=== PATIENT | male | born 1950 | race Caucasian/White ===

== ENCOUNTER 2016-05-23 12:05 | Observation (INO) ==
[2016-05-23 13:17] LABS: Basophils # 0.1 10*3/uL (0.0-0.2); Basophils % 0.8 % (0.0-0.8); Eosinophils # 0.2 10*3/uL (0.0-0.87); Eosinophils % 2.4 % (0.00-10.9); Hematocrit 40.3 VOL% (42.0-52.0); Immature Granulocytes % 0.3 %; Immature Granulocytes Absolute 0.02 #; Lymphocytes # 1.4 10*3/uL (1.4-4.0); Lymphocytes % 21.8 % (21.2-54.2); Mean Corpuscular HGB Conc 34.7 GM/DL (32-36); Mean Corpuscular Hemoglobin 31 PG (27-34); Mean Corpuscular Volume 88.6 FL (87-102); Mean Platelet Volume 9.4 FL (9.6-12.0); Monocytes # 0.4 10*3/uL (0.11-0.8); Monocytes % 6.6 % (1.7-12.7); Neutrophils # 4.5 10*3/uL (1.4-7.4); Neutrophils % 68.1 % (38.7-73.9); Platelet Count 150 T/CUMM (130-400); Red Blood Count 4.55 MC/CUMM (3.8-5.5); Red Cell Distribution Width 12.7 % (9.3-17.3); White Blood Count 6.6 T/CUMM (4-12)
--- NOTE | 2016-05-23 13:38 | XRay Report ---
XR chest 2V Indication: Chest pain, shortness of breath Comparison: 18 June 2014 Findings: The heart and mediastinum are normal in size and configuration. The pulmonary vascularity is normal in caliber. No lung infiltrates, effusions, pneumothorax or other abnormality is demonstrated. Impression: Normal chest x-ray PROCEDURE INTERPRETED AT [facility] DEPARTMENT OF RADIOLOGY Final Report Signed by: Dr. Kieran Cleary
[2016-05-23 13:49] LABS: Alanine Aminotransferase 27 U/L (16-61); Albumin 3.3 G/DL (3.4-5.0); Alkaline Phosphatase 75 U/L (45-117); Aspartate Amino Transferase 18 U/L (0-37); Blood Urea Nitrogen 13 MG/DL (7-18); Calcium 8.5 MG/DL (8.5-10.1); Glucose 108 MG/DL (74-106); Osmolality,Calculated 286.8 MOS/KG (273-304); Potassium 4.3 MMOL/L (3.5-5.1); Sodium 144 MMOL/L (136-145); Total Protein 6.4 G/DL (6.4-8.3); Troponin I Only < 0.015 NG/ML (0.00-0.045)
--- NOTE | 2016-05-23 14:51 | Emergency Department Note ---
Bev Shrestha Brittany, am scribing for, and in the presence of, Louie Rhodes MD 14:09. Meagan Shrestha Phillip K, MD, personally performed the services described in this documentation, ascribed by Ela Pablo in my presence, and it is both accurate and complete 451 . Arrival - Arrival Chief Complaint: Chest Pain Stated Complaint: chest pain ED Nursing Triage Note: CP, SOB, and dizzy starting 3 days ago. Pt also C/O feet swelling. Mode of Arrival: Ambulatory Limitations: No Limitations Source: Patient Time Seen by Provider: 05/23/16 13:18 - History of Present Illness HPI Narrative: This is a 66 y/o white male,who presents to the ED with c/o CP which started 3 days ago. He states he is SOB with the chest pain. He states the chest pain is a sharp tightness type of pain. He denies any nausea, fever or cough. He denies any radiation of the pain. He states at times he feels "clammy". He states at times he feels like he is smothering when he lays down. He reports the chest pain can start while either at rest or at exertion. 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 He states he has a family medical Hx of heart disease. Pt also complains of bilateral leg edema. He states the swelling started 3 days ago as well. He reports he has not been eating a heavy salt diet or on his feet more than normal. He reports taking an Aspirin daily. He states his mom gave him a Lasix earlier for the swelling in his legs. Pt has no other complaints/pain in the ED at this time. Pt has a PMHx of Mi, cardiovascular problems, and degenerative disk disease. Pt has had a cardiac cath with stent, eye surgery, and neurolgical surgery. Pt has a family medical Hx of heart disease. Pt denies a social Hx. Pt reports the last heart cath was 1 year ago. He states the stent was placed 7-8 years ago. Onset (ago): day(s) (Started 3 days ago) Consistency: constant Severity: moderate Allergies/Adverse Reactions: Allergies Allergy/AdvReac Type Severity Reaction Status Date / Time morphine Allergy Mild Unknown/Unable Verified 05/23/16 12:11 to obtain Home Medications: Home Medications Medication Instructions Recorded Confirmed Type Aspirin [Ecotrin] 81 mg PO DAILY 04/06/15 03/20/16 History Atorvastatin [Lipitor] 40 mg PO BEDTIME 04/06/15 03/20/16 History Carvedilol [Coreg] 3.125 mg PO BID 04/06/15 03/20/16 History Review of System - Review of System 12 point system: reviewed and no additional remarkable complaints except as stated - Review of System Constitutional: Absent: fever Respiratory: Absent: cough Cardiovascular: Present: chest pain, orthopnea, other (Dyspnea) Gastrointestinal: Absent: nausea Additional ROS comments: Bilateral Pedal Edema Medical,Surgical,& Family Hx - Medical History Cardio: History of: MA, Cardiovascular Problems Psychological: No history of: Psychiatric Problems Neurology: No history of: Seizures, Neurological Problems Rheumatology: No history of;: Rheumatological Problems Respiratory: No history of: Respiratory Problems Genitourinary: No history of: Problems Gastrointestinal: No history of: GI Problems Musculoskeletal: History of: Degenerative Disk Disease - Surgical History Cardiac Surgeries: Patient Denies: Cardiac Surgery Neurologic Surgeries: Surgical HX of: Neurologic Surgery (cervical disc repair) HEENT Surgeries: Surgical HX of: Eye Surgery (01/2016 Cataract Lt; 03/20/16 Sched for Rt) - Social History Smoking Status: Never smoker Frequency of Alcohol Use: None Type of Drug Use: None Exam Vital Signs: Vital Signs Temperature 98.3 F 05/23/16 12:11 Pulse Rate 58 L 05/23/16 15:30 Respiratory Rate 18 05/23/16 15:30 Blood Pressure 132/72 05/23/16 15:30 O2 Sat by Pulse Oximetry 99 05/23/16 15:30 - General General appearance: alert, in no apparent distress - Head Head exam: Present: atraumatic, normocephalic, normal inspection - Eye Eye exam: Present: normal appearance, PERRL, EOMI. Absent: nystagmus - ENT ENT exam: Present: normal exam, normal oropharynx, mucous membranes moist - Neck Neck exam: Present: normal inspection, full ROM, trachea midline. Absent: tenderness, meningismus, lymphadenopathy, thyromegaly - Chest Chest inspection: Present: normal inspection, symmetric chest wall rise. Absent : tenderness, rash, abscess - Respiratory Respiratory exam: Present: normal lung sounds bilaterally, respiratory distress. Absent: rales, rhonchi, stridor, wheezes - Cardiovascular Cardiovascular exam: Present: regular rate, normal rhythm, normal heart sounds. Absent: murmur, rubs, gallop, clicks, JVD - Abdominal Exam Abdominal exam: Present: soft, normal bowel sounds. Absent: distention, tenderness, guarding, rebound, rigidity - Extremities Exam Extremities exam: Present: pedal edema (Pitting Edema +1 bilaterally) - Back Exam Back exam: Present: normal inspection, full ROM. Absent: tenderness, muscle spasm, rashes - Neurological Exam Neurological exam: Present: alert, oriented X3, CN II-XII intact. Absent: motor sensory deficit - Psychiatric Psychiatric exam: Present: normal affect, normal mood. Absent: depressed, agitated, anxious, manic - Skin Skin exam: Present: warm, dry, intact, normal color. Absent: rash, cyanosis, diaphoresis, erythema, pallor, mottled Results - Labs CBC & BMP: 05/23/16 13:08 05/23/16 13:08 Lab Results: I have reviewed the patients labs Labs: Laboratory Tests 05/23/16 05/23/16 13:08 13:08 Hct 40.3 L MPV 9.4 L Chloride 111 H Glucose 108 H Troponin I < 0.015 Albumin 3.3 L Albumin/Globulin Ratio 1.0 L Laboratory Tests 05/23/16 05/23/16 13:08 13:08 Hct 40.3 L MPV 9.4 L Chloride 111 H Glucose 108 H Troponin I < 0.015 Albumin 3.3 L Albumin/Globulin Ratio 1.0 L - EKG EKG results: interpreted by EMILY, sinus rhythm (old septal MA) - Diagnostic Findings Procedure: Chest x-ray: report reviewed by me (Normal Chest X-ray), Ultrasound: report reviewed by me (Venous Doppler Study: No DVT) Disposition Clinical Impression: Chest pain, Unstable angina pectoris Case discussed with: patient, patient's family Disposition: Still a Patient Condition: Guarded
[2016-05-23] MEDS ORDERED: ENOXAPARIN 100 MG/ML SYRINGE SUBCUT STA (14:54)
[2016-05-23] MEDS ORDERED: ASPIRIN 325 MG TABLET PO STA (14:54)
[2016-05-23] MEDS ORDERED: ENOXAPARIN 100 MG/ML SYRINGE SUBCUT ONE (14:56)
[2016-05-23] MEDS ORDERED: ASPIRIN 325 MG TABLET ONE (14:57)
--- NOTE | 2016-05-23 15:41 | Ultrasound Report ---
Exam: US venous doppler LE BI Indication: Edema Date: 05/23/2016 2:33 PM Comparison 08/27/2013 Findings: Grayscale color flow duplex/Doppler imaging and spectral analysis waveform imaging was performed with real-time ultrasound with image stored and captured. The right common femoral, superficial femoral, popliteal saphenous veins are patent with normal augmentation and compression. There is no evidence of popliteal or Kline's cyst. Normal wave form analysis present. Normal color flow The left common femoral, superficial femoral, popliteal saphenous veins are patent with normal augmentation and compression. There is no evidence of popliteal or Kline's cyst. Normal wave form analysis present. Normal color flow Impression: 1. No DVT PROCEDURE INTERPRETED AT [facility] DEPARTMENT OF RADIOLOGY Final Report Signed by: Dr. Arias Sosa
[2016-05-23] MEDS ORDERED: MAGNESIUM SULF RIDER 4 GM in PREMIX 1 EACH IV PRN (15:57)
[2016-05-23] MEDS ORDERED: ACETAMINOPHEN 325 MG TABLET PO PRN (15:57)
[2016-05-23] MEDS ORDERED: ZALEPLON 5 MG CAPSULE PO PRN (15:57)
[2016-05-23] MEDS ORDERED: DOCUSATE SODIUM 100 MG CAPSULE PO PRN (15:57)
[2016-05-23] MEDS ORDERED: ONDANSETRON 4 MG/2 ML VIAL IV PRN (15:57)
[2016-05-23] MEDS ORDERED: MAGNESIUM SULF RIDER 2 GM in PREMIX 1 EACH IV PRN (15:57)
[2016-05-23] MEDS ORDERED: BISACODYL 5 MG TABLET PO PRN (15:57)
[2016-05-23 16:19] LABS: Troponin I Only < 0.015 NG/ML (0.00-0.045)
--- NOTE | 2016-05-23 16:21 | Cardiology History & Physical ---
Assessment and Plan - Time spent with patient Time spent with patient: Greater than 30 minutes (1) Coronary artery disease Status: Chronic Assessment and plan: SEE PLAN OF CARE LISTED BELOW Current Visit: Yes (2) Ischemic cardiomyopathy Status: Chronic Assessment and plan: SEE PLAN OF CARE LISTED BELOW Current Visit: Yes (3) Hypertension Status: Chronic Assessment and plan: SEE PLAN OF CARE LISTED BELOW Current Visit: Yes (4) Hyperlipidemia Status: Chronic Assessment and plan: SEE PLAN OF CARE LISTED BELOW Current Visit: Yes (5) Obesity Status: Chronic Assessment and plan: SEE PLAN OF CARE LISTED BELOW Current Visit: Yes (6) Obstructive sleep apnea Status: Chronic Assessment and plan: SEE PLAN OF CARE LISTED BELOW Current Visit: Yes (7) Chest pain Status: Acute Assessment and plan: SEE PLAN OF CARE LISTED BELOW Current Visit: Yes (8) Presence of stent in LAD coronary artery Status: Chronic Assessment and plan: SEE PLAN OF CARE LISTED BELOW Current Visit: Yes History of Present Illness Chief complaint: chest pain, known coronary artery disease History of present illness: Mr. Forrester is a 66 year old male previously followed by Dr. Navarro. He was last seen in cardiology clinic 06/19/2015. Risk factors include: Known coronary artery disease requiring PCI and stenting LAD 2009, hypertension, dyslipidemia, obesity and sedentary lifestyle. Approximately 3 days ago, Mr. Forrester began to experience chest pain he describes as "sharp and squeezing" located in the left breast area. This does not radiate but does cause mildly worsened shortness of breath. It lasts various amounts of times including a few seconds to a few minutes. Exercise creates the discomfort and rest relieves the discomfort. He rates the discomfort as a 7 on a scale of 1-10. He is currently chest pain-free. Cardiac biomarkers are negative. EKG does not reveal evidence of ischemia. Last cardiac catheterization 06/20/2014 revealing the following: EF 35-40% with anterolateral and apical wall severely hypokinetic. Second obtuse marginal coronary artery branch of the circumflex revealed less than 50% stenosis. LAD stent patent. Of note, patient experienced severe edema of bilateral lower extremities this past week with reported edema to his knees. He is not edematous at this time. Venous ultrasound bilateral lower extremity reveals no evidence of DVT. Dr. Paulino and I have discussed the case and he is seeing Mr. Forrester at this time. We will keep him nothing by mouth after midnight and consider possible stress testing in the morning. We will continue to cycle his cardiac biomarkers. Echocardiogram has been reordered for this evening to reevaluate his cardiac status. ASSESSMENT/PLAN: 1. CHEST PAIN - currently chest pain free. Patient has some typical and atypical features of angina. We'll continue to cycle his cardiac biomarkers and keep him nothing by mouth after midnight tonight for possible stress testing versus cardiac catheterization in the morning. 2. KNOWN CAD - PCI with stenting of LAD 2010. 3. HYPERTENSION - he tells me this is usually well controlled. We will evaluate medications and adjust accordingly during the hospital stay 4. HYPERLIPIDEMIA - fasting lipid profile in the morning. Continue lipid- lowering agent 5. SLEEP APNEA, NON-COMPLIANT - ill fitting mask. Noncompliant but is agreeable to be reevaluated with recommendations from Dr. Merino. 6. OBESITY - the merits of weight loss was thoroughly discussed for greater than 5 minutes. 7. ICM - prior echocardiogram revealed EF of 35-40%. It's been 2 years since an echocardiogram has been performed. We will reorder tonight. 8. PRESENCE OF LAD STENT - continue current plan of MCC Medications Medication Instructions Recorded Confirmed Type Aspirin [Ecotrin] 81 mg PO DAILY 04/06/15 03/20/16 History Atorvastatin [Lipitor] 40 mg PO BEDTIME 04/06/15 03/20/16 History Carvedilol [Coreg] 3.125 mg PO BID 04/06/15 03/20/16 History Allergies Allergy/AdvReac Type Severity Reaction Status Date / Time morphine Allergy Mild Unknown/Unable Verified 05/23/16 12:11 to obtain Review of systems: REVIEW OF SYSTEMS: - Constitutional Constitutional: Denies syncope, anorexia, fatigue, night sweats - EENT Eyes: Absent: blurry vision, loss of vision, diplopia Ears: Absent: decreased hearing, ear pain, ear discharge - Cardiovascular Cardiovascular: Present: chest pain with exertion, dyspnea on exertion, edema. Denies palpitations. Absent: chest pain with deep breath, claudication - Respiratory Respiratory: Present: SHORT, cough. Absent: wheezing, hemoptysis, change in phlegm color - Gastrointestinal Gastrointestinal: Absent: Denies abdominal pain or constipation, hematemesis, hematochezia, melena, change in bowel habits, nausea - Genitourinary Genitourinary: Absent: difficulty urinating, dysuria, urinary hesitancy, flank pain - Musculoskeletal Musculoskeletal: Present: back pain, pain Absent: joint swelling, muscle cramps, muscle weakness - Neurological Neurological: Present: normal gait without frequent falls. Absent: dizziness, hemiparesis - Psychiatric Psychiatric: Absent: anxiety, depression, difficulty concentrating - Endocrine Endocrine: Absent: cold intolerance, heat intolerance, polyuria, polyphagia, polydipsia - Hematologic/Lymphatic Hematologic/Lymphatic: Present: easy bruising. Absent: easy bleeding -Integumentary Integumentary: Absent: lesions, rashes, skin breakdown Medical,Surgical,& Family Hx - Medical History Cardio: History of: CAD, Hypertension, [place], Cardiovascular Problems Psychological: No history of: Psychiatric Problems Neurology: No history of: Seizures, Neurological Problems Rheumatology: No history of;: Rheumatological Problems Respiratory: No history of: Respiratory Problems Genitourinary: No history of: Problems Gastrointestinal: No history of: GI Problems Musculoskeletal: History of: Degenerative Disk Disease - Surgical History Cardiac Surgeries: Patient Denies: Cardiac Surgery Neurologic Surgeries: Surgical HX of: Neurologic Surgery (cervical disc repair) HEENT Surgeries: Surgical HX of: Eye Surgery (01/2016 Cataract Lt; 03/20/16 Sched for Rt) - Social History Smoking Status: Never smoker Have you smoked in the last 12 months: No Frequency of Alcohol Use: None Type of Drug Use: None Marital Status: Lives With:: Spouse Functional capacity: independent ambulation Cardiology Physical Exam - Constitutional Vitals: Vital Signs Temp Pulse Resp BP Pulse Ox 98.3 F 58 L 18 132/72 99 05/23/16 12:11 05/23/16 15:30 05/23/16 15:30 05/23/16 15:30 05/23/16 15:30 Exam: General: Appears well with no apparent distress. Pleasant and cooperative. Appears comfortable. HEENT: PERRL, normocephalic, atraumatic. Mucous membranes moist. No jaundice noted. Conjunctiva moist and clear, sclerae anicteric Neck: No JVD/HJR, no thyromegaly or lymphadenopathy noted. No carotid bruit appreciated Cardiac: Regular rate and rhythm. No murmur rub or gallop. Lungs: Clear to auscultation without accessory muscle use to assist the respiratory pattern. Not requiring oxygen Abdomen: Soft, bowel sounds normoactive. Nontender and nondistended. No abdominal bruit or thrill noted. No masses noted. Musculoskeletal: No fluid collection. Decreased range of motion is noted. Extremities: No clubbing, cyanosis noted. No edema noted. Upper extremity pulses 2+. Lower extremity pulses 2+. Capillary refill less than 3 seconds. Skin: No unusual lesions or rashes. No skin breakdown appreciated. Neuro: Awake, alert and oriented 3. Moves all extremities well without hemiparesis or paralysis. No essential tremor is appreciated. Result/EKG - Labs CBC & BMP: 05/23/16 13:08 05/23/16 13:08 Lab Results: I have reviewed the past 24 hour labs - Diagnostic Findings Procedure: Chest x-ray: report reviewed by me, Ultrasound: report reviewed by me - EKG EKG results: interpreted by me EKG shows: sinus rhythm Quality Measures - VTE Contraindication to Pharmacological VTE Prophylaxis: Already on Theraputic Agent , No Prophylaxis Needed
[2016-05-23] MEDS: NITROGLYCERIN 2% OINT 1 INCH/GM PACK TOP SCH (18:04)
[2016-05-23] MEDS: PANTOPRAZOLE 40 MG TABLET PO SCH (18:04)
[2016-05-23] MEDS ORDERED: ATORVASTATIN 20 MG TABLET PO SCH (21:00)
[2016-05-23] MEDS ORDERED: ATORVASTATIN 40 MG TABLET PO SCH (21:00)
[2016-05-23] MEDS ORDERED: CARVEDILOL 3.125 MG TABLET PO SCH (21:00)
[2016-05-23] MEDS: CARVEDILOL 3.125 MG TABLET PO SCH (22:31)
[2016-05-24] MEDS: NITROGLYCERIN 2% OINT 1 INCH/GM PACK TOP SCH ×2 (01:39→06:18)
[2016-05-24 03:43] LABS: Basophils # 0.1 10*3/uL (0.0-0.2); Basophils % 1.1 % (0.0-0.8); Eosinophils # 0.2 10*3/uL (0.0-0.87); Hematocrit 40.2 VOL% (42.0-52.0); Hemoglobin 13.6 GM/DL (14.0-18.0); Immature Granulocytes % 0.2 %; Immature Granulocytes Absolute 0.01 #; Lymphocytes # 1.8 10*3/uL (1.4-4.0); Lymphocytes % 31.4 % (21.2-54.2); Mean Corpuscular HGB Conc 33.8 GM/DL (32-36); Mean Corpuscular Hemoglobin 31 PG (27-34); Mean Corpuscular Volume 90.1 FL (87-102); Mean Platelet Volume 10.4 FL (9.6-12.0); Monocytes # 0.4 10*3/uL (0.11-0.8); Monocytes % 7.6 % (1.7-12.7); Neutrophils # 3.2 10*3/uL (1.4-7.4); Neutrophils % 56.7 % (38.7-73.9); Platelet Count 122 T/CUMM (130-400); Red Blood Count 4.46 MC/CUMM (3.8-5.5); Red Cell Distribution Width 12.5 % (9.3-17.3); White Blood Count 5.7 T/CUMM (4-12)
[2016-05-24 04:17] LABS: Albumin 3.2 G/DL (3.4-5.0); Bilirubin,Total 0.5 MG/DL (0.2-1.0); Calcium 8.3 MG/DL (8.5-10.1); Osmolality,Calculated 285.8 MOS/KG (273-304); Potassium 4.1 MMOL/L (3.5-5.1); Risk Ratio 3.63; Total Protein 5.9 G/DL (6.4-8.3); VLDL CHOLESTEROL 41.2 MG/DL
[2016-05-24 04:26] LABS: Troponin I Only < 0.015 NG/ML (0.00-0.045)
--- NOTE | 2016-05-24 07:41 | EKG Report ---
Stationary ECG Study [facility] ER Test Date: 05/23/2016 12:12 PM Pat Name: BESS SHARMA Department: Room: 291 Gender: M Supervisor [employer] Fitting: : 1950 Requested by: Louie Liu Order Number: [id number] Reading MD: TED GODOY Intervals [place] Rate: 70 P: 52 SC: 192 QRS: 48 QRSD: 76 T: 97 QT: 375 QTc: 395 Interpretive Statements SINUS RHYTHM SEPTAL INFARCT, AGE UNDETERMINED Electronically Signed On 05-24-16 22:16:47 CAMPUS SECURITY DIRECTOR by TED GODOY [email or web address]
[2016-05-24] MEDS ORDERED: REGADENOSON 0.4 MG/5 ML SYRINGE IV ONE (08:00)
--- NOTE | 2016-05-24 08:22 | Cardiology Progress Note ---
Assessment and Plan - Time spent with patient Time spent with patient: Greater than 30 minutes (1) Coronary artery disease Status: Chronic Assessment and plan: SEE PLAN OF CARE LISTED BELOW Current Visit: Yes (2) Ischemic cardiomyopathy Status: Chronic Assessment and plan: SEE PLAN OF CARE LISTED BELOW Current Visit: Yes (3) Hypertension Status: Chronic Assessment and plan: SEE PLAN OF CARE LISTED BELOW Current Visit: Yes (4) Hyperlipidemia Status: Chronic Assessment and plan: SEE PLAN OF CARE LISTED BELOW Current Visit: Yes (5) Obesity Status: Chronic Assessment and plan: SEE PLAN OF CARE LISTED BELOW Current Visit: Yes (6) Obstructive sleep apnea Status: Chronic Assessment and plan: SEE PLAN OF CARE LISTED BELOW Current Visit: Yes (7) Chest pain Status: Acute Assessment and plan: SEE PLAN OF CARE LISTED BELOW Current Visit: Yes (8) Presence of stent in LAD coronary artery Status: Chronic Assessment and plan: SEE PLAN OF CARE LISTED BELOW Current Visit: Yes Cardiology - PN: Subj Interval history: Nothing by mouth for stress testing this morning. Overnight, had a good night. Had one episode of chest pain which lasted "a few seconds." Was sitting when this occurred. Complains of cramp BLE occurring frequently. Will add Magnesium to blood work this morning. 3+ BLE pulses and denies claudication. 66-year-old male, followed by Dr. Navarro. Ischemic cardiomyopathy, status post WI, LVEF 35% per pt. S/p LAD PCI 2009. Intermittent chest pain, worsening lower extremity swelling recently. HTN, HLP, ALFRED. So far cardiac biomarkers unremarkable, no ischemic EKG changes. -Echo, reassess CMP, DCHF symptoms worsened. -Proceed with stress test this morning. CP susp. for AP, known CAD. -Continue aspirin, Coreg, ARB, statin -Cont diuretic -Blood pressure and heart rate is well-controlled at this time. -keep on telemetry. Follow BMP/Mg -Alfred - sleep medicine has been consulted Exam (Progress Note) - Constitutional Vitals: Period Temp Pulse Resp BP Sys/Matthew Pulse Ox Last 24 Hr 97.2 F-97.9 F 57-62 16-20 100-132/56-76 94-99 General appearance: normal weight, no acute distress - Head Head exam: Present: normocephalic, atraumatic - Eye Eye exam: Present: EOMI. Absent: conjunctival injection Pupils: Present: VAN, normal accommodation - ENT ENT exam: Present: normal external ear exam, normal oropharynx - Neck Neck exam: Absent: lymphadenopathy, tenderness - Respiratory Respiratory exam: Present: clear to auscultation bilaterally. Absent: accessory muscle use - Cardiovascular Cardiovascular exam: Present: regular rate and rhythm. Absent: JVD - GI/Abdominal GI/Abdominal exam: Present: normal bowel sounds, soft - Extremities Exam Extremities exam: Present: normal capillary refill, full ROM. Absent: calf tenderness, edema - Back Exam Back exam: Absent: CVA tenderness (L), CVA tenderness (R), muscle spasm - Neurological Exam Neurological exam: Present: alert, oriented X3, normal gait - Psychiatric Psychiatric exam: Present: normal affect, normal mood - Skin Skin exam: Present: normal color, warm, dry Result/EKG - Labs CBC & BMP: 05/24/16 02:19 05/24/16 02:19 Lab Results: I have reviewed the past 24 hour labs Labs: Laboratory Results - last 24 hr 05/24/16 05/24/16 05/24/16 02:19 02:19 02:19 WBC 5.7 RBC 4.46 Hgb 13.6 L Hct 40.2 L MCV 90.1 MCH 31 MCHC 33.8 RDW 12.5 Plt Count 122 L MPV 10.4 Neut % (Auto) 56.7 Lymph % (Auto) 31.4 [place] % (Auto) 7.6 Eos % (Auto) 3.0 Baso % (Auto) 1.1 H Neut # (Auto) 3.2 Lymph # (Auto) 1.8 [place] # (Auto) 0.4 Eos # (Auto) 0.2 Baso # (Auto) 0.1 Immature Gran % 0.2 Nucleated RBC % 0.0 Immature Gran # 0.01 Nucleated RBCs # 0.00 Sodium 144 Potassium 4.1 Chloride 109 H Carbon Dioxide 25 Anion Gap 14.1 BUN 13 Creatinine 1.00 GFR Calculation 97 BUN/Creatinine Ratio 13.00 Glucose 102 Calculated Osmolality 285.8 Calcium 8.3 L Total Bilirubin 0.50 AST 15 ALT 26 Alkaline Phosphatase 67 Total Creatine Kinase 84 D CK-MB (CK-2) 1.9 Troponin I < 0.015 Total Protein 5.9 L Albumin 3.2 L Globulin 2.7 Albumin/Globulin Ratio 1.1 Triglycerides 206 H Cholesterol 116 LDL Cholesterol 60.0 VLDL Cholesterol 41.2 HDL Cholesterol 32 L Heart Disease Risk Ratio 3.63 - Diagnostic Findings Procedure: Chest x-ray: report reviewed by me - EKG EKG results: interpreted by me EKG shows: sinus rhythm Quality Measures - VTE Contraindication to Pharmacological VTE Prophylaxis: Already on Theraputic Agent , No Prophylaxis Needed
--- NOTE | 2016-05-24 08:23 | Event Note ---
Attempted GXT portion of stress test. Achieved 7.1METs but due to severe SOB with exertion, wheezing, Lexiscan protocol was utilized. Poor exercise tolerance. No chest pain, but significant SHORT noted. No arrythmia or ST changes noted. Now to nuclear medicine for final scan. Dr. Paulino to read, interpret and advise.
[2016-05-24] MEDS ORDERED: ASPIRIN EC 81 MG TABLET PO SCH (09:00)
--- NOTE | 2016-05-24 10:11 | ECHO Report ---
Cyrus Forrester Exam Date: 05/24/2016 08:09 Referring Physician: Technologist: Age: 66 Ht (in): Wt (lb): Gender: M Exam Location: [facility] Echo Indications: BP: / HR: Rhythm: Sinus Technical Quality: IMPRESSIONS Technically limited study, with poor resolution of the endocardial borders. Normal left ventricle size, without hypertrophy, the apical segments and the apex is akinetic and thinned. The remaining segments have normal systolic thickening. Estimated left ventricular ejection fraction 35%. Grade 1 diastolic dysfunction. Mild left atrial enlargement. Mild mitral regurgitation. Mild pulmonary hypertension. MEASUREMENTS (Male / Female) Normal Values 2D ECHO LV Diastolic Diameter PLAX 5.8 cm 4.2 - 5.9 / 3.9 - 5.3 cm LV Systolic Diameter PLAX 4.1 cm LV Fractional Shortening PLAX 28.7 % IVS Diastolic Thickness 0.7 cm 0.6 - 1.0 / 0.6 - 0.9 cm LVPW Diastolic Thickness 0.8 cm 0.6 - 1.0 / 0.6 - 0.9 cm RV Internal Dim ED PLAX 3.2 cm Aortic Root Diameter 3.2 cm LA Systolic Diameter LX 4.4 cm 3.0 - 4.0 / 2.7 - 3.8 cm DOPPLER TR Peak Velocity 311.0 cm/s TR Peak Gradient 38.7 mmHg FINDINGS Left Ventricle Normal left ventricle size, without hypertrophy, the apical segments and the apex is akinetic and thinned. The remaining segments have normal systolic thickening. Estimated left ventricular ejection fraction 35%. Grade 1 diastolic dysfunction. Right Ventricle The right ventricle is normal in size and function. Right Atrium The right atrium is normal in size. Left Atrium The left ventricle is mildy dilated. Mitral Valve Morphologically normal mitral valve without significant stenosis or prolapse. There is mild mitral regurgitation. Aortic Valve Morphologically normal aortic valve without significant sclerosis or stenosis. There is no aortic regurgitation. Tricuspid Valve Morphologically normal tricuspid valve without significant stenosis, with mild regurgitation. Pulmonary artery systolic pressure is 39 mmHg + RA pressure. Pulmonic Valve Morphologically normal pulmonic valve without significant stenosis. There is no pulmonic regurgitation. Pericardium Normal pericardium without effusion. Aorta Normal ascending aorta dimension. Emeterio Paulino (Electronically Signed) Final Date: 24 May 2016 10:10
[2016-05-24] MEDS: PANTOPRAZOLE 40 MG TABLET PO SCH (10:28)
[2016-05-24] MEDS: CARVEDILOL 3.125 MG TABLET PO SCH (10:29)
[2016-05-24] MEDS ORDERED: FUROSEMIDE 40 MG TABLET PO SCH (10:30)
[2016-05-24] MEDS ORDERED: ATORVASTATIN 40 MG TABLET PO SCH (11:02)
--- NOTE | 2016-05-24 11:09 | Discharge Summary ---
Hospital Course - Hospital Course Hospital Course: Mr. Forrester is a 66-year-old male, followed by Dr. Rosen. History of anterior MD, ischemic cardiomyopathy, status post LAD PCI. He was admitted with progressive CHF, lower extremity swelling. There was no evidence of acute coronary syndrome. Echo showed akinesis and thinning of the apical segments, ejection fraction 35%, which is at his baseline. Stress test showed old myocardial disease, dilated left ventricle, without evidence of reversible myocardial ischemia. No significant arrhythmia on telemetry. His symptoms improved with Lasix. He was able to ambulate and perform light activity, without heart failure symptoms. The LE edema is mild. -He will be discharged today, follow-up with Dr. Rosen in one week, with BMP/ magnesium. -Added Imdur 15 mg daily and Lasix 40 mg daily -He was referred for sleep evaluation, will need to follow-up with Dr. Merino. -Continue aspirin. -Increase Lipitor to 80 mg daily. Recheck lipids in 3 months -Continue Corex 3.125 mg twice a day. Baseline HR 55-60 -Continue ARB. BP well controlled, renal function preserved. -He is a candidate for ICD implant for primary prevention, we discussed this and he will follow-up with Dr. Rosen. 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 Diagnosis - Discharge Diagnosis (1) Coronary artery disease Status: Chronic (2) Hyperlipidemia Status: Chronic (3) Hypertension Status: Chronic (4) Ischemic cardiomyopathy Status: Chronic (5) Obesity Status: Chronic (6) Obstructive sleep apnea Status: Chronic (7) Presence of stent in LAD coronary artery Status: Chronic Specialty Discharge - Follow Up or Referrals - Speciality Discharge Instructions Pulmonary Instructions: Refer to dr. Merino for sleep eval Discharge Plan - Discharge Data Disposition: Disch To Home/Self Care Condition at Discharge: Stable Discharge Diet: advance to your usual diet Activity: resume usual activities as tolerated Hygiene: no restrictions Weight Bearing at Discharge: full weight bearing Driving: no restrictions Contact your physician if you experience:: fever over 101, Difficulty voiding, Redness or swelling, Nausea/Vomiting, Shortness of breath, Bleeding, pain uncontrolled by pain medications - Discharge Medications New Atorvastatin [Lipitor] 80 mg PO BEDTIME #30 tablet Furosemide Tab [Lasix Tab] 40 mg PO DAILY #30 tablet Isosorbide Mononitrate [Imdur] 15 mg PO DAILY #30 tablet Continue Diazepam Tab [Valium Tab] 10 mg PO BID PRN PRN Reason: Anxiety Losartan [Cozaar] 50 mg PO DAILY Aspirin EC Tab 325 mg PO DAILY Temazepam [Restoril] 30 mg PO BEDTIME PRN PRN Reason: Leg Cramps Carvedilol [Coreg] 3.125 mg PO BID Donepezil HCl 10 mg PO DAILY Discontinued Atorvastatin [Lipitor] 40 mg PO DAILY - Follow Up or Referral Follow Up: Casey Rosen MD [Physician] - 1 Week (Check BMP/Mg) - Forms/Instructions Exam - Constitutional Vitals: Period Temp Pulse Resp BP Sys/Matthew Pulse Ox Last 24 Hr 97.2 F-97.9 F 57-62 16-20 100-132/56-76 94-99 General appearance: over weight - Head Head exam: Present: normal inspection - Eye Eye exam: Absent: conjunctival injection Pupils: Absent: dilated - ENT ENT exam: Present: normal external ear exam - Neck Neck exam: Present: normal inspection - Respiratory Respiratory exam: Present: clear to auscultation bilaterally - Cardiovascular Cardiovascular exam: Present: regular rate and rhythm - GI/Abdominal GI/Abdominal exam: Present: normal bowel sounds - Extremities Exam Extremities exam: Present: normal inspection, normal capillary refill, edema (1+ ) - Back Exam Back exam: Present: normal inspection - Neurological Exam Neurological exam: Present: alert, oriented X3 - Psychiatric Psychiatric exam: Present: normal affect, normal mood - Skin Skin exam: Present: normal color, warm. Absent: cyanosis Discharge Results Procedures and tests throughout hospitalization: Pending Orders 05/24/16 04:00 NM marquis perf SPECT rest or str IN AM 05/24/16 08:00 Troponin,CKMB & Ck Total Q8H Labs on day of discharge: Labs from last 24 hours 05/24/16 05/24/16 05/24/16 02:19 02:19 02:19 WBC 5.7 RBC 4.46 Hgb 13.6 L Hct 40.2 L MCV 90.1 MCH 31 MCHC 33.8 RDW 12.5 Plt Count 122 L MPV 10.4 Neut % (Auto) 56.7 Lymph % (Auto) 31.4 Amador % (Auto) 7.6 Eos % (Auto) 3.0 Baso % (Auto) 1.1 H Neut # (Auto) 3.2 Lymph # (Auto) 1.8 [place] # (Auto) 0.4 Eos # (Auto) 0.2 Baso # (Auto) 0.1 Immature Gran % 0.2 Nucleated RBC % 0.0 Immature Gran # 0.01 Nucleated RBCs # 0.00 Sodium 144 Potassium 4.1 Chloride 109 H Carbon Dioxide 25 Anion Gap 14.1 BUN 13 Creatinine 1.00 GFR Calculation 97 BUN/Creatinine Ratio 13.00 Glucose 102 Calculated Osmolality 285.8 Calcium 8.3 L Magnesium Total Bilirubin 0.50 AST 15 ALT 26 Alkaline Phosphatase 67 Total Creatine Kinase 84 D CK-MB (CK-2) 1.9 Troponin I < 0.015 Total Protein 5.9 L Albumin 3.2 L Globulin 2.7 Albumin/Globulin Ratio 1.1 Triglycerides 206 H Cholesterol 116 LDL Cholesterol 60.0 VLDL Cholesterol 41.2 HDL Cholesterol 32 L Heart Disease Risk Ratio 3.63 05/24/16 02:17 WBC RBC Hgb Hct MCV MCH MCHC RDW Plt Count MPV Neut % (Auto) Lymph % (Auto) Amador % (Auto) Eos % (Auto) Baso % (Auto) Neut # (Auto) Lymph # (Auto) [place] # (Auto) Eos # (Auto) Baso # (Auto) Immature Gran % Nucleated RBC % Immature Gran # Nucleated RBCs # Sodium Potassium Chloride Carbon Dioxide Anion Gap BUN Creatinine GFR Calculation BUN/Creatinine Ratio Glucose Calculated Osmolality Calcium Magnesium 2.2 Total Bilirubin AST ALT Alkaline Phosphatase Total Creatine Kinase CK-MB (CK-2) Troponin I Total Protein Albumin Globulin Albumin/Globulin Ratio Triglycerides Cholesterol LDL Cholesterol VLDL Cholesterol HDL Cholesterol Heart Disease Risk Ratio - Imaging and Cardiology Cardiology Procedure: image reviewed by me, report reviewed by me DS: Provider Date of admission: 05/23/16 15:07 Primary care physician: Arias Hartmann, Attending physician on admission: Emeterio Paulino MD Consults: 05/23/16 15:57 Consult to Physician [CONS] Routine Comment: Consulting Provider: 05/23/16 16:27 Consult to Sleep Center [CONS] Routine Reason for Sleep Center: Sleep Center Physician Consult Comment: non-compliant due to ill-fitting mask 05/23/16 17:05 Consult to Pharmacy [CONS] Routine Reason for Pharmacy Consult: Adjust Meds Renal Funct Discharging clinician: Emeterio Paulino MD Expected date of discharge: 05/24/16
[2016-05-24] MEDS ORDERED: ISOSORBIDE MONONITRATE 30 MG TABLET PO SCH (11:30)
[2016-05-24 11:48] VITALS: BP 122/65
[2016-05-24 12:36] LABS: Troponin I Only < 0.015 NG/ML (0.00-0.045)
--- NOTE | 2016-05-24 15:23 | Nuclear Medicine Report ---
EXERCISE STRESS TEST Test was performed and interpreted by Dr. Emeterio Paulino. INDICATION: Ischemic cardiomyopathy, dyspnea on exertion, CHF. PROCEDURE: The patient was injected with 10 mCi of Technetium-99 labeled Sestamibi and rest images were obtained. The patient was then exercised according to the Colt treadmill protocol but was unable to achieve the maximum predicted heart rate and was transitioned to the Lexiscan protocol and, 0.4 mg IV Lexiscan was then injected. Post stress, 30 mCi of Technetium-99 labeled Sestamibi was injected and post stress images were obtained. FINDINGS: The patient exercised for 7 minutes and 17 seconds, according to the Colt protocol, achieving a peak heart rate of 118 beats per minute, 71% for the maximum predicted heart rate. The resting blood pressure of 132/78, alayna to a maximum blood pressure of 146/86 beats per minute. Rest EKG showed sinus rhythm, with anterior Q waves without significant ST-T changes. No significant ST-T changes were encountered at peak exercise. There was no arrhythmia. The exercise was terminated due to shortness of breath and transitioned to the Lexiscan protocol. Rest and post stress gated and perfusion scan images were reviewed. There are some motion artifacts on the stress and rest images. The end-diastolic volume is 179 cc, the end-systolic volume is 116 cc, and calculated left ventricular ejection fraction of 35%. There is absence of wall thickening in the anteroseptal/apical region and the inferior/apical region. The remaining segments have normal systolic thickening. Perfusion images show an area of significantly decreased activity in the inferior/apical segments and the anteroseptal/apical segments and the apex. These are present in both stress and rest images. Findings are consistent with old myocardial disease, without reversible ischemia. CONCLUSIONS: 1. POOR EXERCISE TOLERANCE 7.1 METS, CLINICALLY AND ELECTRICALLY NEGATIVE TEST FOR ISCHEMIA WITH LEXISCAN. 2. DILATED LEFT VENTRICLE, WITH DEPRESSED SYSTOLIC FUNCTION, WITH WALL MOTION ABNORMALITIES DESCRIBED ABOVE, OLD MYOCARDIAL DISEASE WITHOUT EVIDENCE OF REVERSIBLE ISCHEMIA. 3. THIS IS A MODERATE RISK TEST. Procedure performed and interpreted at [facility] Department of Radiology. [facility]
[2016-05-25] MEDS ORDERED: LOSARTAN 50 MG TABLET PO SCH (09:00)
== END 2016-05-24 13:22 | disposition home or self-care (01) ==
LOC: N.ED 12:05 → N.EDINP 12:05 → N.TELEN 16:59
PROVIDERS: ADMIT Internal Medicine Clinical Cardiac Electrophysiology; ATTEND Internal Medicine Clinical Cardiac Electrophysiology

== ENCOUNTER 2018-12-25 06:59 | Observation (INO) ==
[2018-12-25] MEDS ORDERED: ONDANSETRON 4 MG/2 ML VIAL IV STA (07:25)
[2018-12-25] MEDS ORDERED: SODIUM CHLORIDE 0.9% 1,000 ML IV STA (07:25)
[2018-12-25 07:57] LABS: Basophils % 0.2 % (0.0-0.8); Eosinophils % 0.8 % (0.00-10.9); Hemoglobin 15.7 GM/DL (14.0-18.0); Immature Granulocytes % 0.4 %; Immature Granulocytes Absolute 0.02 #; Lymphocytes # 0.7 10*3/uL (1.4-4.0); Lymphocytes % 13.2 % (21.2-54.2); Mean Corpuscular HGB Conc 34.9 GM/DL (32-36); Mean Platelet Volume 9.8 FL (9.6-12.0); Monocytes % 9.6 % (1.7-12.7); Neutrophils % 75.8 % (38.7-73.9); Platelet Count 102 T/CUMM (130-400); Red Blood Count 4.84 MC/CUMM (3.8-5.5); Red Cell Distribution Width 13.2 % (9.3-17.3); White Blood Count 5.3 T/CUMM (4-12)
[2018-12-25 08:06] LABS: PT Patient Result 10.7 SECS (9.6-12.2); Partial Thromboplastin Time 24.2 SECS (20.8-36.0)
[2018-12-25 08:12] LABS: Alanine Aminotransferase 37 U/L (16-61); Albumin 3.7 G/DL (3.4-5.0); Alkaline Phosphatase 63 U/L (45-117); Amylase 36 U/L (25-115); Aspartate Amino Transferase 22 U/L (0-37); Blood Urea Nitrogen 18 MG/DL (7-18); Calcium 8.3 MG/DL (8.5-10.1); Estimated Glom Filtration Rate 76 ML/MIN; Glucose 114 MG/DL (74-106); Total Protein 6.8 G/DL (6.4-8.3); Troponin I < 0.015 NG/ML (0.00-0.045)
[2018-12-25] MEDS ORDERED: ACETAMINOPHEN 325 MG TABLET PO PRN (09:38)
[2018-12-25] MEDS ORDERED: ONDANSETRON 4 MG/2 ML VIAL IV PRN (09:38)
[2018-12-25] MEDS ORDERED: PROMETHAZINE 25 MG/1 ML VIAL IM PRN (09:38)
[2018-12-25] MEDS ORDERED: INFLUENZA VIRUS VACCINE 0.5 ML SYRINGE IM ONE (09:55)
[2018-12-25 10:28] LABS: Troponin I < 0.015 NG/ML (0.00-0.045)
[2018-12-25] MEDS: SODIUM CHLORIDE 0.9% 1,000 ML IV SCH ×3 (12:32→20:23)
[2018-12-25] MEDS: PANTOPRAZOLE 40 MG TABLET PO SCH (12:32)
[2018-12-25 14:08] LABS: Troponin I < 0.015 NG/ML (0.00-0.045)
[2018-12-25 16:39] LABS: Troponin I < 0.015 NG/ML (0.00-0.045)
[2018-12-25] MEDS: carvediloL 3.125 MG TABLET PO SCH (18:32)
[2018-12-25] MEDS ORDERED: ATORVASTATIN 40 MG TABLET PO SCH (21:00)
[2018-12-26] MEDS: SODIUM CHLORIDE 0.9% 1,000 ML IV SCH (04:23)
[2018-12-26] MEDS ORDERED: LOSARTAN 50 MG TABLET PO SCH (09:00)
[2018-12-26] MEDS ORDERED: ASPIRIN 325 MG TABLET PO SCH (09:00)
[2018-12-26] MEDS: PANTOPRAZOLE 40 MG TABLET PO SCH (09:45)
[2018-12-26] MEDS: carvediloL 3.125 MG TABLET PO SCH (09:45)
[2018-12-26 12:42] VITALS: BP 140/73
== END 2018-12-26 14:14 | disposition home or self-care (01) ==
LOC: N.EDINP 06:59 → N.ED 06:59 → N.TELES 09:25
PROVIDERS: ADMIT Family Medicine; ATTEND Family Medicine